=== PATIENT | female | born 1950 | race American Indian/Alaskan Native ===

== ENCOUNTER 2017-10-12 18:34 | Emergency (ER) | payer MEDICARE ==
--- NOTE | 2017-10-12 21:43 | Emergency Department Report ---
- General Chief complaint: Pain General Stated complaint: BACK PAIN Time Seen by Provider: 10/12/17 21:38 Source: patient Mode of arrival: Ambulatory Limitations: No Limitations - History of Present Illness MD complaint: rash (RIGHT ABDOMENT IN DERMATOME PATTERN) -: Gradual (OVER ONE MONTH) Severity: moderate Severity scale (0 -10): 4 Quality: burning Consistency: constant Improves with: medication Worsens with: none Context: none Associated symptoms: denies other symptoms Treatments Prior to Arrival: none - Related Data Home Medications Medication Instructions Recorded Confirmed Last Taken Amlodipine Besylate [Norvasc] 10 mg PO DAILY 10/12/17 10/12/17 Unknown Aspirin [Children's Aspirin] 81 mg PO DAILY 10/12/17 10/12/17 Unknown Carvedilol [Coreg] 12.5 mg PO DAILY 10/12/17 10/12/17 Unknown HCTZ 25 mg PO DAILY 10/12/17 10/12/17 Unknown Insulin Detemir [Levemir VIAL] 30 unit SQ QHS 10/12/17 10/12/17 Unknown Insulin Detemir [Levemir] 15 unit SQ QAM 10/12/17 10/12/17 Unknown Losartan [Cozaar] 25 mg PO QDAY 10/12/17 10/12/17 Unknown traMADol [Ultram] 50 mg PO Q4HR PRN 10/12/17 10/12/17 Unknown Previous Rx's Medication Instructions Recorded Last Taken Type Acyclovir 800 mg PO 5XD #50 tablet 10/12/17 Unknown Rx oxyCODONE /ACETAMINOPHEN [Percocet 1 tab PO Q6HR PRN #20 tablet 10/12/17 Unknown Rx 5/325] Allergies Allergy/AdvReac Type Severity Reaction Status Date / Time lisinopril Allergy Unknown Verified 10/12/17 18:58 NSAIDS (Non-Steroidal Allergy Unknown Verified 10/12/17 18:58 Anti-Inflamma Penicillins Allergy Shortness Verified 10/12/17 18:58 of Breath Abscess Boil HPI - HPI Chief Complaint: Pain General Stated Complaint: BACK PAIN Time Seen by Provider: 10/12/17 21:38 Home Medications: Home Medications Medication Instructions Recorded Confirmed Last Taken Amlodipine Besylate [Norvasc] 10 mg PO DAILY 10/12/17 10/12/17 Unknown Aspirin [Children's Aspirin] 81 mg PO DAILY 10/12/17 10/12/17 Unknown Carvedilol [Coreg] 12.5 mg PO DAILY 10/12/17 10/12/17 Unknown HCTZ 25 mg PO DAILY 10/12/17 10/12/17 Unknown Insulin Detemir [Levemir VIAL] 30 unit SQ QHS 10/12/17 10/12/17 Unknown Insulin Detemir [Levemir] 15 unit SQ QAM 10/12/17 10/12/17 Unknown Losartan [Cozaar] 25 mg PO QDAY 10/12/17 10/12/17 Unknown traMADol [Ultram] 50 mg PO Q4HR PRN 10/12/17 10/12/17 Unknown Previous Rx's Medication Instructions Recorded Last Taken Type Acyclovir 800 mg PO 5XD #50 tablet 10/12/17 Unknown Rx oxyCODONE /ACETAMINOPHEN [Percocet 1 tab PO Q6HR PRN #20 tablet 10/12/17 Unknown Rx 5/325] Allergies/Adverse Reactions: Allergies Allergy/AdvReac Type Severity Reaction Status Date / Time lisinopril Allergy Unknown Verified 10/12/17 18:58 NSAIDS (Non-Steroidal Allergy Unknown Verified 10/12/17 18:58 Anti-Inflamma Penicillins Allergy Shortness Verified 10/12/17 18:58 of Breath ED Review of Systems ROS: Stated complaint: BACK PAIN Other details as noted in HPI Constitutional: denies: chills, fever Eyes: denies: eye pain, eye discharge, vision change ENT: denies: ear pain, throat pain Respiratory: denies: cough, shortness of breath, wheezing Cardiovascular: denies: chest pain, palpitations Endocrine: no symptoms reported Gastrointestinal: denies: abdominal pain, nausea, diarrhea Genitourinary: denies: urgency, dysuria, discharge Musculoskeletal: denies: back pain, joint swelling, arthralgia Skin: rash, other (BURNING). denies: lesions Neurological: denies: headache, weakness, paresthesias Psychiatric: denies: anxiety, depression Hematological/Lymphatic: denies: easy bleeding, easy bruising ED Past Medical Hx - Past Medical History Previous Medical History?: Yes Hx Hypertension: Yes Hx Diabetes: Yes Hx Arthritis: Yes (neck and lower back) Additional medical history: shingles 2017 - Surgical History Hx Cholecystectomy: Yes Additional Surgical History: hysterectomy - Social History Smoking Status: Never Smoker Substance Use Type: None - Medications Home Medications: Home Medications Medication Instructions Recorded Confirmed Last Taken Type Acyclovir 800 mg PO 5XD #50 tablet 10/12/17 Unknown Rx Amlodipine Besylate [Norvasc] 10 mg PO DAILY 10/12/17 10/12/17 Unknown History Aspirin [Children's Aspirin] 81 mg PO DAILY 10/12/17 10/12/17 Unknown History Carvedilol [Coreg] 12.5 mg PO DAILY 10/12/17 10/12/17 Unknown History HCTZ 25 mg PO DAILY 10/12/17 10/12/17 Unknown History Insulin Detemir [Levemir VIAL] 30 unit SQ QHS 10/12/17 10/12/17 Unknown History Insulin Detemir [Levemir] 15 unit SQ QAM 10/12/17 10/12/17 Unknown History Losartan [Cozaar] 25 mg PO QDAY 10/12/17 10/12/17 Unknown History oxyCODONE /ACETAMINOPHEN [Percocet 1 tab PO Q6HR PRN #20 tablet 10/12/17 Unknown Rx 5/325] traMADol [Ultram] 50 mg PO Q4HR PRN 10/12/17 10/12/17 Unknown History ED Physical Exam - General Limitations: No Limitations General appearance: alert, in no apparent distress - Head Head exam: Present: atraumatic, normocephalic - Eye Eye exam: Present: normal appearance - ENT ENT exam: Present: mucous membranes moist - Neck Neck exam: Present: normal inspection - Respiratory Respiratory exam: Present: normal lung sounds bilaterally. Absent: respiratory distress - Cardiovascular Cardiovascular Exam: Present: regular rate, normal rhythm. Absent: systolic murmur, diastolic murmur, rubs, gallop - GI/Abdominal GI/Abdominal exam: Present: soft, normal bowel sounds - Extremities Exam Extremities exam: Present: normal inspection - Back Exam Back exam: Present: normal inspection - Neurological Exam Neurological exam: Present: alert, oriented X3 - Psychiatric Psychiatric exam: Present: normal affect, normal mood - Skin Skin exam: Present: warm, dry, intact, normal color, rash (RIGHT ABDOMEN IN DERMATOMAL PATTERN), erythema, other (HEALED MULTIPLE VESICLES) ED Course Vital Signs 10/12/17 18:52 Temperature 98.3 F Pulse Rate 77 Respiratory 18 Rate Blood Pressure 152/72 O2 Sat by Pulse 99 Oximetry Critical care attestation.: If time is entered above; I have spent that time in minutes in the direct care of this critically ill patient, excluding procedure time. ED Disposition Clinical Impression: Shingles (herpes zoster) polyneuropathy Shingles outbreak Qualifiers: Herpes zoster complications: without complications Qualified Code(s): B02.9 - Zoster without complications Disposition: DC- TO HOME OR SELFCARE Is pt being admited?: No Does the pt Need Aspirin: No Condition: Stable Instructions: Herpes Zoster (ED) Additional Instructions: RETURN TO ED FOR ANY REASON Prescriptions: Acyclovir 800 mg PO 5XD #50 tablet oxyCODONE /ACETAMINOPHEN [Percocet 5/325] 1 tab PO Q6HR PRN #20 tablet PRN Reason: Pain Referrals: PRIMARY CARE, [Primary Care Provider] - 3-5 Days
[2017-10-13 03:39] VITALS: BP 158/80
== END 2017-10-12 21:53 | disposition home or self-care (01) ==
LOC: ED 18:34
DX: B02.9 Zoster without complications (principal); E11.9 Type 2 diabetes mellitus without complications; G62.9 Polyneuropathy, unspecified; Z90.49 Acquired absence of other specified parts of digestive tract; Z88.0 Allergy status to penicillin; Z88.8 Allergy status to other drugs, medicaments and biological substances
CPT/HCPCS: 99282

== ENCOUNTER 2017-11-24 13:49 | Emergency (ER) | payer MEDICARE ==
[2017-11-24 17:44] LABS: Bilirubin,Urine NEG (Negative); Blood,Urine NEG (Negative); Color,Urine Straw (Yellow); Nitrite,Urine NEG (Negative); Protein,Urine <15 mg/dL mg/dL (Negative); Urobilinogen,Urine < 2.0 mg/dL (<2.0)
[2017-11-24 18:06] LABS: WBC,Urine < 1.0 /HPF (0.0-6.0)
[2017-11-25] MEDS ORDERED: PERCOCET 5/325 PO ONE (02:44)
[2017-11-25] MEDS ORDERED: MORPHINE IM ONE (02:44)
[2017-11-25] MEDS ORDERED: ZOFRAN ODT PO ONE (02:45)
[2017-11-25 04:46] VITALS: BP 137/75
--- NOTE | 2017-11-25 04:50 | Emergency Department Report ---
ED Abdominal Pain HPI - General Chief Complaint: Abdominal Pain Stated Complaint: ABDOMINAL PAIN Time Seen by Provider: 11/25/17 02:41 Source: patient Mode of arrival: Ambulatory Limitations: No Limitations - History of Present Illness Initial Comments: 67 YO FEMALE C/O SHINGLES RASH ON HER RIGHT FLANK THAT OCCURRED 4 MONTHS AGO AND SHE IS STILL IN PAIN AFTER THE RASH HAS GONE. SHE IS NOT HAVAING PAIN IN HER ABDOMEN BUT CAME FOR PAIN MEDICATION BECAUSE OF HER DISCOMFORT. MD Complaint: flank pain -: month(s) (4) Location: R flank (IN DERMATOME PATTERN) Severity scale (0 -10): 10 Quality: sharp, burning Consistency: constant Improves With: medication Worsens With: movement, other (PALPATION) Context: other (SHIGLES OUT BREAK) Associated Symptoms: denies other symptoms. denies: nausea, vomiting, diarrhea , constipation, dysuria, hematemesis - Related Data Home Medications Medication Instructions Recorded Confirmed Last Taken Amlodipine Besylate [Norvasc] 10 mg PO DAILY 10/12/17 10/12/17 Unknown Aspirin [Children's Aspirin] 81 mg PO DAILY 10/12/17 10/12/17 Unknown Carvedilol [Coreg] 12.5 mg PO DAILY 10/12/17 10/12/17 Unknown HCTZ 25 mg PO DAILY 10/12/17 10/12/17 Unknown Insulin Detemir [Levemir VIAL] 30 unit SQ QHS 10/12/17 10/12/17 Unknown Insulin Detemir [Levemir] 15 unit SQ QAM 10/12/17 10/12/17 Unknown Losartan [Cozaar] 25 mg PO QDAY 10/12/17 10/12/17 Unknown traMADol [Ultram] 50 mg PO Q4HR PRN 10/12/17 10/12/17 Unknown Previous Rx's Medication Instructions Recorded Last Taken Type Acyclovir 800 mg PO 5XD #50 tablet 11/25/17 Unknown Rx oxyCODONE /ACETAMINOPHEN [Percocet 2 tab PO Q6HR PRN #20 tablet 11/25/17 Unknown Rx 5/325 mg] Allergies Allergy/AdvReac Type Severity Reaction Status Date / Time lisinopril Allergy Unknown Verified 10/12/17 18:58 NSAIDS (Non-Steroidal Allergy Unknown Verified 10/12/17 18:58 Anti-Inflamma Penicillins Allergy Shortness Verified 10/12/17 18:58 of Breath ED Review of Systems ROS: Stated complaint: ABDOMINAL PAIN Other details as noted in HPI Constitutional: denies: chills, fever Eyes: denies: eye pain, eye discharge, vision change ENT: denies: ear pain, throat pain Respiratory: denies: cough, shortness of breath, wheezing Cardiovascular: denies: chest pain, palpitations Endocrine: no symptoms reported Gastrointestinal: denies: abdominal pain, nausea, diarrhea Genitourinary: denies: urgency, dysuria, discharge Musculoskeletal: back pain (RIGHT FLANK). denies: joint swelling, arthralgia Skin: denies: rash, lesions Neurological: denies: headache, weakness, paresthesias Psychiatric: denies: anxiety, depression Hematological/Lymphatic: denies: easy bleeding, easy bruising ED Past Medical Hx - Past Medical History Previous Medical History?: Yes Hx Hypertension: Yes Hx Diabetes: Yes Hx Arthritis: Yes (neck and lower back) Additional medical history: shingles 2016 - Surgical History Hx Cholecystectomy: Yes Additional Surgical History: hysterectomy - Social History Smoking Status: Former Smoker Substance Use Type: None - Medications Home Medications: Home Medications Medication Instructions Recorded Confirmed Last Taken Type Amlodipine Besylate [Norvasc] 10 mg PO DAILY 10/12/17 10/12/17 Unknown History Aspirin [Children's Aspirin] 81 mg PO DAILY 10/12/17 10/12/17 Unknown History Carvedilol [Coreg] 12.5 mg PO DAILY 10/12/17 10/12/17 Unknown History HCTZ 25 mg PO DAILY 10/12/17 10/12/17 Unknown History Insulin Detemir [Levemir VIAL] 30 unit SQ QHS 10/12/17 10/12/17 Unknown History Insulin Detemir [Levemir] 15 unit SQ QAM 10/12/17 10/12/17 Unknown History Losartan [Cozaar] 25 mg PO QDAY 10/12/17 10/12/17 Unknown History traMADol [Ultram] 50 mg PO Q4HR PRN 10/12/17 10/12/17 Unknown History Acyclovir 800 mg PO 5XD #50 tablet 11/25/17 Unknown Rx oxyCODONE /ACETAMINOPHEN [Percocet 2 tab PO Q6HR PRN #20 tablet 11/25/17 Unknown Rx 5/325 mg] ED Physical Exam - General Limitations: No Limitations General appearance: alert, in no apparent distress - Head Head exam: Present: atraumatic, normocephalic - Eye Eye exam: Present: normal appearance, EOMI - ENT ENT exam: Present: mucous membranes moist - Neck Neck exam: Present: normal inspection, full ROM - Respiratory Respiratory exam: Present: normal lung sounds bilaterally. Absent: respiratory distress - Cardiovascular Cardiovascular Exam: Present: regular rate, normal rhythm. Absent: systolic murmur, diastolic murmur, rubs, gallop - GI/Abdominal GI/Abdominal exam: Present: soft, normal bowel sounds - Rectal Rectal exam: Present: deferred - Extremities Exam Extremities exam: Present: normal inspection, full ROM - Back Exam Back exam: Present: full ROM, tenderness (RIGHT FLANK BURNING,TENDERNESS). Absent: rash noted - Neurological Exam Neurological exam: Present: alert, oriented X3 - Psychiatric Psychiatric exam: Present: normal affect, normal mood - Skin Skin exam: Present: warm, dry, intact, normal color. Absent: rash ED Course Vital Signs 11/24/17 11/24/17 11/25/17 16:12 20:39 01:22 Temperature 98 F 98.6 F 98.5 F Pulse Rate 82 83 72 Respiratory 18 18 15 Rate Blood Pressure 126/70 154/81 Blood Pressure 144/77 [Right] O2 Sat by Pulse 98 99 98 Oximetry 11/25/17 11/25/17 01:25 03:10 Temperature Pulse Rate Respiratory 18 18 Rate Blood Pressure Blood Pressure [Right] O2 Sat by Pulse 98 Oximetry Critical care attestation.: If time is entered above; I have spent that time in minutes in the direct care of this critically ill patient, excluding procedure time. ED Disposition Clinical Impression: Post herpetic neuralgia Disposition: -01 TO HOME OR SELFCARE Is pt being admited?: No Does the pt Need Aspirin: No Condition: Stable Instructions: Abdominal Pain (ED), Herpes Zoster (ED) Additional Instructions: PLEASE FOLLOW UP WITH YOUR DOCTOR IN 2 DAYS . RETURN TO THE ER IF SYMPTOMS GET WORSE, OR FOR ANY CONCERNS Prescriptions: Acyclovir 800 mg PO 5XD #50 tablet oxyCODONE /ACETAMINOPHEN [Percocet 5/325 mg] 2 tab PO Q6HR PRN #20 tablet PRN Reason: Pain Referrals: PRIMARY CARE, [Primary Care Provider] - 3-5 Days Time of Disposition: 04:51
== END 2017-11-25 05:00 | disposition home or self-care (01) ==
LOC: ED 13:49
DX: B02.29 Other postherpetic nervous system involvement (principal); I10 Essential (primary) hypertension; E11.9 Type 2 diabetes mellitus without complications; M19.90 Unspecified osteoarthritis, unspecified site; Z90.49 Acquired absence of other specified parts of digestive tract; Z79.82 Long term (current) use of aspirin; Z87.891 Personal history of nicotine dependence; Z79.4 Long term (current) use of insulin; Z88.0 Allergy status to penicillin; Z88.6 Allergy status to analgesic agent
CPT/HCPCS: 81001; 96372; 99283; J2270; Q0162

== ENCOUNTER 2017-12-12 10:22 | Emergency (ER) | payer MEDICARE ==
[2017-12-12 11:25] VITALS: BP 127/69
--- NOTE | 2017-12-12 14:21 | Emergency Department Report ---
ED General Adult HPI - General Chief complaint: Back Pain/Injury Stated complaint: BACK PAIN Time Seen by Provider: 12/12/17 13:38 Source: patient Mode of arrival: Ambulatory Limitations: No Limitations - History of Present Illness Initial comments: This is a 67-year-old female nontoxic, well nourished in appearance, no acute signs of distress presents to the ED with c/o of pain in the area of her shingles rash of the right flank region. Patient stated she has been diagnosed with shingles and now has chronic intermittent pain in that region. Patient denies any rash as stated rash has been gone. Patient denies any fever, abdominal pain, nausea, vomiting, chest pain, short of breath, dysuria, polyuria , hematuria, headache, stiff neck. Patient states allergies to NSAIDs, penicillin and lisinopril. Past medical history includes arthritis, diabetes, hypertension. MD Complaint: pain -: month(s) (4) Radiation: non-radiation Severity scale (0 -10): 8 Quality: aching Consistency: constant Improves with: none Worsens with: none Associated Symptoms: denies other symptoms. denies: confusion, chest pain, cough, diaphoresis, fever/chills, headaches, loss of appetite, malaise, nausea/ vomiting, rash, seizure, shortness of breath, syncope, weakness Treatments Prior to Arrival: none - Related Data Home Medications Medication Instructions Recorded Confirmed Last Taken Amlodipine Besylate [Norvasc] 10 mg PO DAILY 10/12/17 10/12/17 Unknown Aspirin [Children's Aspirin] 81 mg PO DAILY 10/12/17 10/12/17 Unknown Carvedilol [Coreg] 12.5 mg PO DAILY 10/12/17 10/12/17 Unknown HCTZ 25 mg PO DAILY 10/12/17 10/12/17 Unknown Insulin Detemir [Levemir VIAL] 30 unit SQ QHS 10/12/17 10/12/17 Unknown Insulin Detemir [Levemir] 15 unit SQ QAM 10/12/17 10/12/17 Unknown Losartan [Cozaar] 25 mg PO QDAY 10/12/17 10/12/17 Unknown traMADol [Ultram] 50 mg PO Q4HR PRN 10/12/17 10/12/17 Unknown Previous Rx's Medication Instructions Recorded Last Taken Type Acyclovir 800 mg PO 5XD #50 tablet 11/25/17 Unknown Rx oxyCODONE /ACETAMINOPHEN [Percocet 2 tab PO Q6HR PRN #20 tablet 11/25/17 Unknown Rx 5/325 mg] traMADol [Ultram] 50 mg PO Q6HR PRN #12 tablet 12/12/17 Unknown Rx Allergies Allergy/AdvReac Type Severity Reaction Status Date / Time lisinopril Allergy Unknown Verified 10/12/17 18:58 NSAIDS (Non-Steroidal Allergy Unknown Verified 10/12/17 18:58 Anti-Inflamma Penicillins Allergy Shortness Verified 10/12/17 18:58 of Breath ED Review of Systems ROS: Stated complaint: BACK PAIN Other details as noted in HPI Constitutional: denies: chills, fever Eyes: denies: eye pain, eye discharge, vision change ENT: denies: ear pain, throat pain Respiratory: denies: cough, shortness of breath, wheezing Cardiovascular: denies: chest pain, palpitations Endocrine: no symptoms reported Gastrointestinal: denies: abdominal pain, nausea, diarrhea Genitourinary: denies: urgency, dysuria, discharge Musculoskeletal: denies: back pain, joint swelling, arthralgia Skin: denies: rash, lesions Neurological: denies: headache, weakness, paresthesias Psychiatric: denies: anxiety, depression Hematological/Lymphatic: denies: easy bleeding, easy bruising ED Past Medical Hx - Past Medical History Previous Medical History?: Yes Hx Hypertension: Yes Hx Diabetes: Yes Hx Arthritis: Yes (neck and lower back) Additional medical history: shingles 2016 - Surgical History Past Surgical History?: Yes Hx Cholecystectomy: Yes Additional Surgical History: hysterectomy - Social History Smoking Status: Never Smoker Substance Use Type: None - Medications Home Medications: Home Medications Medication Instructions Recorded Confirmed Last Taken Type Amlodipine Besylate [Norvasc] 10 mg PO DAILY 10/12/17 10/12/17 Unknown History Aspirin [Children's Aspirin] 81 mg PO DAILY 10/12/17 10/12/17 Unknown History Carvedilol [Coreg] 12.5 mg PO DAILY 10/12/17 10/12/17 Unknown History HCTZ 25 mg PO DAILY 10/12/17 10/12/17 Unknown History Insulin Detemir [Levemir VIAL] 30 unit SQ QHS 10/12/17 10/12/17 Unknown History Insulin Detemir [Levemir] 15 unit SQ QAM 10/12/17 10/12/17 Unknown History Losartan [Cozaar] 25 mg PO QDAY 10/12/17 10/12/17 Unknown History traMADol [Ultram] 50 mg PO Q4HR PRN 10/12/17 10/12/17 Unknown History Acyclovir 800 mg PO 5XD #50 tablet 11/25/17 Unknown Rx oxyCODONE /ACETAMINOPHEN [Percocet 2 tab PO Q6HR PRN #20 tablet 11/25/17 Unknown Rx 5/325 mg] traMADol [Ultram] 50 mg PO Q6HR PRN #12 tablet 12/12/17 Unknown Rx ED Physical Exam - General Limitations: No Limitations General appearance: alert, in no apparent distress - Head Head exam: Present: atraumatic, normocephalic, normal inspection - Eye Eye exam: Present: normal appearance, PERRL, EOMI. Absent: scleral icterus, conjunctival injection, nystagmus, periorbital swelling, periorbital tenderness Pupils: Present: normal accommodation - ENT ENT exam: Present: normal exam, normal orophraynx, mucous membranes moist, TM's normal bilaterally, normal external ear exam - Neck Neck exam: Present: normal inspection, full ROM. Absent: tenderness, meningismus, lymphadenopathy, thyromegaly - Respiratory Respiratory exam: Present: normal lung sounds bilaterally. Absent: respiratory distress, wheezes, rales, rhonchi, stridor, chest wall tenderness, accessory muscle use, decreased breath sounds, prolonged expiratory - Cardiovascular Cardiovascular Exam: Present: regular rate, normal rhythm, normal heart sounds. Absent: bradycardia, tachycardia, irregular rhythm, systolic murmur, diastolic murmur, rubs, gallop - GI/Abdominal GI/Abdominal exam: Present: soft, normal bowel sounds. Absent: distended, tenderness, guarding, rebound, rigid, diminished bowel sounds - Rectal Rectal exam: Present: deferred - Extremities Exam Extremities exam: Present: normal inspection, full ROM, normal capillary refill. Absent: tenderness, pedal edema, joint swelling, calf tenderness - Back Exam Back exam: Present: normal inspection, full ROM. Absent: tenderness, CVA tenderness (R), CVA tenderness (L), muscle spasm, paraspinal tenderness, vertebral tenderness, rash noted - Neurological Exam Neurological exam: Present: alert, oriented X3, CN II-XII intact, normal gait, reflexes normal - Psychiatric Psychiatric exam: Present: normal affect, normal mood - Skin Skin exam: Present: warm, dry, intact, normal color. Absent: rash ED Course Vital Signs 12/12/17 11:23 Temperature 98.5 F Pulse Rate 72 Respiratory 16 Rate Blood Pressure 127/69 O2 Sat by Pulse 99 Oximetry - Reevaluation(s) Reevaluation #1: 12/12/17 14:22 Patient is speaking in full sentences with no signs of distress noted. ED Medical Decision Making - Medical Decision Making 67-year-old female that presents with post herpetic neuralgia. Patient is stable and was examined by me. There is no rash or redness or cellulitis region. No CVA tenderness. UA obtained and within normal limits. I will treatatient with Ultram and then I refer patient to a primary care doctor/pain management. Patient was instructed Follow-up with a primary care doctor in 3-5 days or if symptoms worsen and continue return to emergency room as soon as possible. At time time of discharge, the patient does not seem toxic or ill in appearance. No acute signs of distress noted. Patient agrees to discharge treatment plan of care. No further questions noted by the patient. Critical care attestation.: If time is entered above; I have spent that time in minutes in the direct care of this critically ill patient, excluding procedure time. ED Disposition Clinical Impression: Post herpetic neuralgia Disposition: DC-01 TO HOME OR SELFCARE Is pt being admited?: No Does the pt Need Aspirin: No Condition: Stable Instructions: Tramadol (By mouth) Additional Instructions: Follow-up with a primary care doctor in 3-5 days or if symptoms worsen and continue return to emergency room as soon as possible. Do not operate any machinery while taking Ultram due to drowsiness Prescriptions: traMADol [Ultram] 50 mg PO Q6HR PRN #12 tablet PRN Reason: Pain Referrals: HUMBERTO ANTONY MD [Primary Care Provider] - 3-5 Days EMERSON FREITAS MD [Staff Physician] - 3-5 Days JULIENNE PAN MD [Staff Physician] - 3-5 Days [facility] [Outside] - 3-5 Days [facility] [Outside] - 3-5 Days
[2017-12-12 14:42] LABS: Bilirubin,Urine NEG (Negative); Blood,Urine NEG (Negative); Color,Urine Straw (Yellow); Nitrite,Urine NEG (Negative); Protein,Urine <15 mg/dL mg/dL (Negative); RBC,Urine < 1.0 /HPF (0.0-6.0); Urobilinogen,Urine < 2.0 mg/dL (<2.0); WBC,Urine < 1.0 /HPF (0.0-6.0)
== END 2017-12-12 15:06 | disposition home or self-care (01) ==
LOC: ED 10:22
DX: B02.22 Postherpetic trigeminal neuralgia (principal); I10 Essential (primary) hypertension; E11.9 Type 2 diabetes mellitus without complications; Z90.710 Acquired absence of both cervix and uterus; Z90.49 Acquired absence of other specified parts of digestive tract
CPT/HCPCS: 81001; 99283